=== PATIENT | female | born 1965 | race Caucasian/White ===

== ENCOUNTER → 2017-05-03 | Outpatient (CLI) | payer BC | END | disposition home or self-care (01) | LOC: LABWHC1 09:51 | PROVIDERS: ATTEND Internal Medicine Endocrinology, Diabetes & Metabolism | DX: E03.9 Hypothyroidism, unspecified (principal); E06.3 Autoimmune thyroiditis; E22.1 Hyperprolactinemia; D35.2 Benign neoplasm of pituitary gland | CPT/HCPCS: 36415; 84146 ==

== ENCOUNTER → 2019-04-07 | Outpatient (CLI) | payer BC ==
--- NOTE | 2019-04-07 14:00 | XR ---
EXAMINATION TYPE: XR chest 2V DATE OF EXAM: 04/07/2019 COMPARISON: NONE TECHNIQUE: PA and lateral views submitted. HISTORY: Cough FINDINGS: The lungs are clear and there is no pneumothorax, pleural effusion, or focal pneumonia. Hypertrophi c change of the spine. IMPRESSION: 1. No acute process.
== END ==
LOC: RADXRMAIN 13:28
PROVIDERS: ATTEND Otolaryngology
DX: R06.02 Shortness of breath (principal); R05 Cough
CPT/HCPCS: 71046

== ENCOUNTER → 2019-10-19 | Outpatient (CLI) | payer BC | END | disposition home or self-care (01) | LOC: LABWHC1 13:02 | PROVIDERS: ATTEND Otolaryngology | DX: T78.40XA Allergy, unspecified, initial encounter (principal) | CPT/HCPCS: 36415 ==

== ENCOUNTER → 2019-12-29 | Outpatient (CLI) | payer BC ==
[2019-12-29 12:29] LABS: Basophils % (A) 1 %; Eosinophils # (A) 0.2 k/uL (0-0.7); Eosinophils % (A) 4 %; HCT 40.1 % (34.0-46.0); HGB 13.3 gm/dL (11.4-16.0); Lymphocytes # (A) 1.7 k/uL (1.0-4.8); Lymphocytes % (A) 31 %; MCH 30.1 pg (25.0-35.0); MCHC 33.1 g/dL (31.0-37.0); MCV 90.8 fL (80.0-100.0); Mean Platelet Volume 7.1; Monocytes # (A) 0.3 k/uL (0-1.0); Monocytes % (A) 5 %; Neutrophils # (A) 3.2 k/uL (1.3-7.7); Neutrophils % (A) 58 %; Platelet Count 325 k/uL (150-450); RBC 4.41 m/uL (3.80-5.40); RDW 13.2 % (11.5-15.5); WBC 5.5 k/uL (3.8-10.6)
[2019-12-29 18:30] LABS: Hemoglobin A1C 5.7 % (4.0-6.0)
== END | disposition home or self-care (01) ==
LOC: LABWHC1 11:35
PROVIDERS: ATTEND Otolaryngology
DX: R73.9 Hyperglycemia, unspecified (principal); R53.83 Other fatigue
CPT/HCPCS: 36415; 83036; 85025; 86141

== ENCOUNTER → 2020-05-11 | Outpatient (CLI) | payer BC ==
--- NOTE | 2020-05-11 08:34 | XR ---
EXAMINATION TYPE: XR foot complete RT DATE OF EXAM: 05/11/2020 COMPARISON: NONE HISTORY: Pain TECHNIQUE: Three views are submitted. FINDINGS: The osseous structures are intact. There is no acute fracture or dislocation. Plantar calcaneal spur noted. Well-corticated bony densities adjacent to the cuboid bone may represent accessory ossicl es severe arthropathy of the first MTP joint. IMPRESSION: 1. No acute fracture or dislocation. If symptoms persist, follow-up exam in 7 to 10 days could be ob tained.
--- NOTE | 2020-05-11 08:34 | XR ---
EXAMINATION TYPE: XR ankle complete RT DATE OF EXAM: 05/11/2020 COMPARISON: NONE HISTORY: Pain and swelling FINDINGS: Three views of the ankle demonstrate the ankle mortise to be intact and symmetric. There is a plantar calcaneal spur. There is a slight cortical defect involving the medial malleolus. IMPRESSION: 1. Slight cortical defect involving the medial malleolus compatible with an age-indeterminate tiny av ulsion fracture. Correlate with point tenderness.
== END | disposition home or self-care (01) ==
LOC: RADXRMAIN 08:05
PROVIDERS: ATTEND Otolaryngology
DX: M89.8X7 Other specified disorders of bone, ankle and foot (principal)

== ENCOUNTER 2020-09-16 04:00 | Emergency (ER) | payer BC ==
[2020-09-16 04:13] VITALS: RESP 16
--- NOTE | 2020-09-16 04:23 | ED ---
Chest Pain HPI - General Chief Complaint: Chest Pain Stated Complaint: Chest pain, weakness, vomiting Time Seen by Provider: 09/16/20 04:07 Source: patient Mode of arrival: wheelchair Limitations: no limitations - History of Present Illness Initial Comments: this patient is a 55-year-old woman presenting to be evaluated for some symptoms that woke her from sleep tonight. She states that she had been feeling well yesterday. She had in fact gone out celebrating and had 4 drinks and some pizza. She awoke this morning with severe substernal heartburn feeling. She also noticed that her heart was racing and she felt like she couldn't catch her breath. Patient had an episode of vomiting. The symptoms then began to improve and she states that they have resolved by now. MD Complaint: chest pain -: minutes(s) Onset: awoke with symptoms Pain Location: substernal Pain Radiation: none Quality: other (burning) Consistency: now resolved Improves With: other (spontaneously) Worsens With: nothing Anginal Symptoms: vomiting, dyspnea Treatments Prior to Arrival: none - Related Data Home Medications Medication Instructions Recorded Confirmed Atorvastatin [Lipitor] 20 mg PO HS 06/01/15 06/01/15 Levothyroxine Sodium [Synthroid] 75 mcg PO DAILY 06/01/15 06/01/15 Dostinex 5 mg PO SUWE 06/02/15 06/02/15 Ipratropium [place] 0.06%Nasal 2 spray NASAL DAILY 06/02/15 06/02/15 [Atrovent Nasal] Allergies Allergy/AdvReac Type Severity Reaction Status Date / Time levofloxacin [From Levaquin] Allergy Unknown Verified 09/16/20 04:14 Review of Systems ROS Statement: Those systems with pertinent positive or pertinent negative responses have been documented in the HPI. ROS Other: All systems not noted in ROS Statement are negative. Constitutional: Denies: fever, chills Respiratory: Reports: dyspnea. Denies: cough Cardiovascular: Reports: chest pain, palpitations. Denies: orthopnea, edema, syncope Gastrointestinal: Reports: nausea, vomiting. Denies: abdominal pain, diarrhea, constipation Genitourinary: Denies: dysuria, hematuria Musculoskeletal: Denies: back pain Skin: Denies: rash Neurological: Denies: headache, weakness, numbness EKG Findings - EKG Results: EKG: interpreted by ERMD, WNL, sinus rhythm (rate 79), normal axis, normal QRS, normal ST/T, no acute changes Past Medical History Additional Past Medical History / Comment(s): pituitary tumor History of Any Multi-Drug Resistant Organisms: None Reported Past Surgical History: Appendectomy Smoking Status: Never smoker Past Alcohol Use History: Occasional Past Drug Use History: None Reported General Exam Limitations: no limitations General appearance: alert, in no apparent distress Head exam: Present: atraumatic, normocephalic Eye exam: Present: normal appearance. Absent: scleral icterus, conjunctival injection ENT exam: Present: normal oropharynx Neck exam: Present: normal inspection Respiratory exam: Present: normal lung sounds bilaterally. Absent: respiratory distress, wheezes, rales, rhonchi, stridor Cardiovascular Exam: Present: regular rate, normal rhythm, normal heart sounds. Absent: systolic murmur, diastolic murmur, rubs, gallop GI/Abdominal exam: Present: soft. Absent: distended, tenderness, guarding, rebound, rigid, mass Extremities exam: Present: normal inspection, normal capillary refill. Absent: pedal edema, calf tenderness Back exam: Present: normal inspection. Absent: CVA tenderness (R), CVA tenderness (L) Neurological exam: Present: alert Skin exam: Present: warm, dry, intact, normal color. Absent: rash Course Vital Signs 09/16/20 09/16/20 04:05 04:14 Temperature 98.9 F Pulse Rate 81 Pulse Rate [ 83 [employer] ] Respiratory 16 Rate Blood Pressure 149/99 O2 Sat by Pulse 99 Oximetry Disposition Clinical Impression: Chest pain Disposition: HOME SELF-CARE Condition: Good Instructions (If sedation given, give patient instructions): Chest Pain (ED) Is patient prescribed a controlled substance at d/c from ED?: No Referrals: Salomon Arvizu DO [Primary Care Provider] - 1-2 days
[2020-09-16 04:47] LABS: Basophils # (A) 0.1 k/uL (0-0.2); Basophils % (A) 1 %; Eosinophils # (A) 0.5 k/uL (0-0.7); Eosinophils % (A) 4 %; HCT 40.1 % (34.0-46.0); HGB 13.4 gm/dL (11.4-16.0); Lymphocytes # (A) 2.8 k/uL (1.0-4.8); Lymphocytes % (A) 24 %; MCH 30.2 pg (25.0-35.0); MCHC 33.3 g/dL (31.0-37.0); MCV 90.9 fL (80.0-100.0); Mean Platelet Volume 6.7; Monocytes # (A) 0.7 k/uL (0-1.0); Monocytes % (A) 6 %; Neutrophils # (A) 7.5 k/uL (1.3-7.7); Neutrophils % (A) 64 %; Platelet Count 349 k/uL (150-450); RBC 4.42 m/uL (3.80-5.40); RDW 12.9 % (11.5-15.5); WBC 11.7 k/uL (3.8-10.6)
--- NOTE | 2020-09-16 04:54 | XR ---
EXAM: XR Chest, 2 Views CLINICAL HISTORY: Chest Pain TECHNIQUE: Frontal and lateral views of the chest. COMPARISON: 04/07/2019. FINDINGS: Lungs: Left lower lobe atelectasis and/or consolidation, best seen on the lateral view. Pleural space: Unremarkable. No pneumothorax. Heart: Unremarkable. No cardiomegaly. Mediastinum: Unremarkable. Bones/joints: Unremarkable. IMPRESSION: Left lower lobe atelectasis and/or consolidation, best seen on the lateral view. CT of the chest may be obtained for further evaluation, if clinically indicated.
[2020-09-16 04:57] LABS: Albumin 4.6 g/dL (3.5-5.0); Calcium 9.5 mg/dL (8.4-10.2); Magnesium 1.7 mg/dL (1.6-2.3); Potassium 4.5 mmol/L (3.5-5.1); Total Bilirubin 0.5 mg/dL (0.2-1.3); Total Protein 7.2 g/dL (6.3-8.2)
[2020-09-16 05:01] LABS: INR 0.9 (<1.2); Partial Thromboplastin Time 22.3 sec (22.0-30.0); Prothrombin Time 9.8 sec (9.0-12.0)
[2020-09-16 06:00] VITALS: BP 131/77; PULSE 70; TEMP 98
== END 2020-09-16 06:05 | disposition home or self-care (01) ==
LOC: EC 04:00
DX: R07.9 Chest pain, unspecified (principal); R12 Heartburn; R11.10 Vomiting, unspecified; Z88.1 Allergy status to other antibiotic agents; Z86.39 Personal history of other endocrine, nutritional and metabolic disease
CPT/HCPCS: 36415; 71046; 80053; 82150; 83690; 83735; 84484; 85025; 85610; 85730; 93005; 99285

== ENCOUNTER → 2020-09-21 | Outpatient (CLI) | payer BC ==
[2020-09-21 13:07] LABS: African American GFR (CKD) >90 (>60 ml/min/1.73 sqM); Blood Urea Nitrogen 12 mg/dL (7-17); Non-African American GFR(CKD) >90 (>60 ml/min/1.73 sqM)
--- NOTE | 2020-09-21 16:12 | CT ---
EXAMINATION TYPE: CT chest w con DATE OF EXAM: 09/21/2020 COMPARISON: None HISTORY: shortness of breath and difficulty laying flat CT DLP: 377.2 mGycm, Automated exposure control for dose reduction was used. CONTRAST: Performed injected with 100 mL of Isovue 300. TECHNIQUE: Axial images were obtained at 5 mm thick sections. Reconstructed images are reviewed on [employer] computer in the coronal plane. FINDINGS: Portion of the thyroid visualized is normal. No suspicious lung nodules or focal infiltrates are present. No enlarged mediastinal or hilar adenopathy is evident. The ascending aorta diameter at the level o f the main pulmonary artery is 3.4 cm. The main pulmonary artery diameter at the bifurcation is 2.[address] sections are obtained through the upper abdomen. Abdomen is essentially unremarkable. IMPRESSIONS: 1. No acute pulmonary process.
== END | disposition home or self-care (01) ==
LOC: RADCTMAIN 12:10
PROVIDERS: ATTEND Internal Medicine Critical Care Medicine
DX: J18.9 Pneumonia, unspecified organism (principal); Z88.1 Allergy status to other antibiotic agents
CPT/HCPCS: 82565; 84520; 71260; 36415; Q9967

== ENCOUNTER → 2021-10-04 | Outpatient (CLI) | payer BC ==
--- NOTE | 2021-10-05 09:59 | XR ---
EXAMINATION TYPE: XR chest w obliques DATE OF EXAM: 10/04/2021 COMPARISON: 09/16/2020 HISTORY: Cough TECHNIQUE: Frontal and lateral views of the chest are obtained. FINDINGS: Heart is normal. Subsegmental changes at the lung bases. No pneumothorax or interstitial e angela. Pleural thickening or tiny pleural effusions. IMPRESSION: Basilar atelectasis or early infiltrate.
== END | disposition home or self-care (01) ==
LOC: RADXRMAIN 16:01
PROVIDERS: ATTEND Otolaryngology
DX: J98.4 Other disorders of lung (principal)
CPT/HCPCS: 71047

== ENCOUNTER 2021-10-05 15:45 | Emergency (ER) | payer BC ==
--- NOTE | 2021-10-05 19:18 | ED ---
General Adult HPI - General Chief complaint: Upper Respiratory Infection Stated complaint: Covid+, wants BAM Time Seen by Provider: 10/05/21 18:47 Source: patient, RN notes reviewed Mode of arrival: ambulatory Limitations: no limitations - History of Present Illness Initial comments: Patient is a pleasant 56-year-old female presents emergency Department with concerns for COVID-19 infection. Onset of symptoms was 5 days ago. Patient was exposed is 2 days prior to that. Patient does have cough and chest congestion. Patient has had chills and significant fatigue. No nausea vomiting or diarrhea. Patient is tolerating oral intake. No loss of taste or smell. Patient did have positive test with Dr. ubaldo sawant. - Related Data Home Medications Medication Instructions Recorded Confirmed Atorvastatin [Lipitor] 20 mg PO HS 06/01/15 06/01/15 Levothyroxine Sodium [Synthroid] 75 mcg PO DAILY 06/01/15 06/01/15 Dostinex 5 mg PO SUWE 06/02/15 06/02/15 Ipratropium [place] 0.06%Nasal 2 spray NASAL DAILY 06/02/15 06/02/15 [Atrovent Nasal] Allergies Allergy/AdvReac Type Severity Reaction Status Date / Time levofloxacin [From Levaquin] Allergy Unknown Verified 10/05/21 16:17 Review of Systems ROS Statement: Those systems with pertinent positive or pertinent negative responses have been documented in the HPI. ROS Other: All systems not noted in ROS Statement are negative. Eyes: Denies: eye pain ENT: Reports: congestion Respiratory: Reports: cough Cardiovascular: Denies: chest pain Endocrine: Reports: fatigue Gastrointestinal: Denies: abdominal pain Genitourinary: Denies: dysuria Musculoskeletal: Denies: back pain Skin: Denies: rash Neurological: Denies: weakness Past Medical History Past Medical History: Hypertension Additional Past Medical History / Comment(s): pituitary tumor, bronchitis, History of Any Multi-Drug Resistant Organisms: None Reported Past Surgical History: Appendectomy Smoking Status: Never smoker Past Alcohol Use History: Occasional Past Drug Use History: None Reported General Exam Limitations: no limitations General appearance: alert, in no apparent distress Head exam: Present: normocephalic Eye exam: Present: normal appearance Neck exam: Present: normal inspection Respiratory exam: Present: normal lung sounds bilaterally Cardiovascular Exam: Present: regular rate, normal rhythm Extremities exam: Present: normal inspection. Absent: calf tenderness Neurological exam: Present: alert Psychiatric exam: Present: normal affect, normal mood Skin exam: Present: normal color Course Vital Signs 10/05/21 16:14 Temperature 98.5 F Pulse Rate 69 Respiratory 22 Rate Blood Pressure 183/111 O2 Sat by Pulse 97 Oximetry Medical Decision Making - Medical Decision Making Patient is a candidate for monoclonal antibodies and will receive this prior to discharge. Disposition Clinical Impression: COVID-19 Disposition: HOME SELF-CARE Condition: Stable Instructions (If sedation given, give patient instructions): Coronavirus Disease 2019 (COVID-19) Additional Instructions: Please do follow-up to primary care physician in the next day or 2 for recheck. [id number] vitamin C, vitamin D, and zinc. Melatonin also be of benefit. [id number] Tylenol as needed. Return for difficulty breathing, not tolerating fluids, worsening symptoms or other concerns. Is patient prescribed a controlled substance at d/c from ED?: No Referrals: Salomon Arvizu DO [Primary Care Provider] - 1-2 days Time of Disposition: 19:18
[2021-10-05] MEDS ORDERED: SODIUM CHLORIDE 0.9% 50 ML IVPB ONE (19:45)
[2021-10-05] MEDS ORDERED: SOTROVIMAB (EUA) 500 MG in SODIUM CHLORIDE 0.9% 100 ML IVPB ONE (19:45)
[2021-10-05 20:47] VITALS: TEMP 98.3
[2021-10-05 22:23] VITALS: BP 123/81; PULSE 59; RESP 16
== END 2021-10-05 22:22 | disposition home or self-care (01) ==
LOC: EC 15:45
DX: U07.1 COVID-19 (principal); I10 Essential (primary) hypertension; Z88.1 Allergy status to other antibiotic agents; Z90.49 Acquired absence of other specified parts of digestive tract
CPT/HCPCS: 99283; Q0247

== ENCOUNTER → 2021-11-17 | Outpatient (CLI) | payer BC ==
--- NOTE | 2021-11-17 16:16 | CT ---
EXAMINATION TYPE: High-resolution CT chest DATE OF EXAM: 11/17/2021 COMPARISON: 09/21/2020 HISTORY: 56-year-old female SOB post covid TECHNIQUE: High-resolution axial scanning of the chest without contrast utilizing 1 mm slice thicknes s and 1 cm gap per HRCT protocol. Both prone and supine imaging was performed. CT DLP: 854.5 mGycm Automated exposure control for dose reduction was used. FINDINGS: Heart normal size without pericardial effusion. Mildly ectatic ascending aorta 3.6 cm. There is conve ntional arch vessel branching anatomy. Allowing for HRCT technique. No thoracic lymphadenopathy is identified. Lungs show mild diffuse bronchial wall thickening. There is some strandy atelectasis in the right mid dle lobe versus scarring. The finding persists on the prone imaging. No consolidation or pleural effu letty. No honeycombing, thickening of the bronchovascular bundles, groundglass opacities, bronchiectas is, or cystic change. No tree-in-bud opacities or perilymphatic nodularity. Small hiatal hernia. Visualized upper abdomen otherwise shows no gross abnormal body. Bones: No osseous destructive process. IMPRESSION: 1. MILD BRONCHIAL WALL THICKENING MAY BE SEEN WITH BRONCHITIS OR CHRONIC ASTHMA. 2. SOME LINEAR SCARRING IN THE RIGHT MIDDLE LOBE. NO SPECIFIC FINDINGS OF INTERSTITIAL LUNG DISEASE. 3. SMALL HIATAL HERNIA.
== END | disposition home or self-care (01) ==
LOC: RADCTMAIN 13:39
PROVIDERS: ATTEND Internal Medicine Critical Care Medicine
DX: J98.09 Other diseases of bronchus, not elsewhere classified (principal); K44.9 Diaphragmatic hernia without obstruction or gangrene; J98.4 Other disorders of lung
CPT/HCPCS: 71250

== ENCOUNTER → 2022-11-12 | Outpatient (CLI) | payer BC ==
--- NOTE | 2022-11-12 12:11 | BD ---
EXAMINATION TYPE: Axial Bone Density DATE OF EXAM: 11/12/2022 COMPARISON: DEXA bone scan 2012 CLINICAL HISTORY: 57 years year old Female. ICD-10 CODE: Z78.0 POST MENOPAUSAL W/O HRT Height: 5 FT 4 IN Weight: 205 FRAX RISK QUESTIONS: Alcohol (3 or more units per day): NO Family History (Parent hip fracture): NO Glucocorticoids (More than 3mos): YES (Ex: prednisone, prednisolone, methylprednisolone, dexamethasone, and hydrocortisone). History of Fracture in Adulthood: YES Secondary Osteoporosis: 1. Type 1 Diabetes: NO 2. Hyperthyroidism: NO 3. Menopause before 45: NO 4. Malnutrition: NO 5. Chronic liver disease: NO Rheumatoid Arthritis: YES Current Tobacco Use: NO RISK FACTORS HISTORY OF: Surgery to Spine/Hip(right/left)/Wrist (right/left): NO Family History of Osteoporosis: NO Active: YES Diet low in dairy products/other sources of calcium: NO Postmenopausal woman: YES Take estrogen and/or progesterone medications: NO Lost more than 2 inches in height since high school: NO Frequent falls: NO Poor Health: GOOD Hyperparathyroidism: NO Adrenal Insufficiency: NO MEDICATIONS: Thyroid Medications: YES Which medication: SYNTHROID How Long: OVER 20 YEARS Additional Medications: HORMONE SABA, SYNTHROID, ALLERGY MEDS, CHOLESTEROL MEDS, BLOOD PRESSURE ME DS Additional History: BREAST CANCER 2020 RADIATION EXAM MEASUREMENTS: Bone mineral densitometry was performed using the [employer]. Bone mineral density as measured about the Lumbar spine is: ----- L1-L4(G/cm2): 1.169 T Score Values are as follows: ----- L1: -0.9 ----- L2: 0.2 ----- L3: -0.1 ----- L4: 0.1 ----- L1-L4: -0.1 PREV DONE ELSEWHERE Bone mineral density about the R hip (g/cm2): 1.100 Bone mineral density about the L hip (g/cm2): 1.165 T Score values are as follows: -----R Neck: 0.4 -----L Neck: 0.9 -----R Total: 1.2 -----L Total: 1.6 PREV DONE ELSEWHERE FRAX%s: The graph provided illustrates a 8.5 % chance for a major osteoporotic fx and a 0.1 % chance for the hips probability for fx in 10 years time. IMPRESSION: Normal (Values between +1 and -1 indicate normal bone mass). Consider repeating this study in 5 year s or sooner if there is some new clinical indication. NOTE: T-SCORE=SD OF THE YOUNG ADULT MEAN.
== END | disposition home or self-care (01) ==
LOC: RADBDWWP 10:43
PROVIDERS: ATTEND Internal Medicine Hematology & Oncology
DX: Z78.0 Asymptomatic menopausal state (principal); Z85.3 Personal history of malignant neoplasm of breast
CPT/HCPCS: 77080

== ENCOUNTER → 2023-06-21 | Outpatient (CLI) | payer BC ==
--- NOTE | 2023-06-23 20:51 | CT ---
EXAMINATION TYPE: CT soft tissue neck w con DATE OF EXAM: 06/21/2023 COMPARISON: None HISTORY: sore throat, hx of thyroid issues controlled by synthorid, pt states palpable lump CT DLP: 612.20 mGycm CONTRAST: Patient injected with 100 mL of Isovue 300. TECHNIQUE: Axial images at 3 mm thick sections. Reconstructed images in the coronal plane and sagitt al plane are reviewed. FINDINGS: Limited CT sections are obtained the lung apices. The lung apices appear clear. CT neck: The torus tubarius and fossa of Rosenmuller are normal. [employer] spaces are normal. Para nasal sinuses and mastoid air cells are clear. Parotid glands appear normal and symmetrical. Submandibular glands, are normal. Parapharyngeal spac es are normal. No suspicious adenopathy is evident. There are a few scattered small lymph nodes pres ent bilaterally. The hypopharynx appears within normal limits. Vocal cord level appear symmetrical. Thyroid appears atrophic. No masses in or about the thyroid are identified. Some minimal asymmetry of the left sternocleidomastoid near its insertion on the clavicular region may be present. No other un derlying masses evident. Osseous structures are normal. Degenerative disc changes present C5-6 C6-7. Small anterior vertebral body spurs are present at these levels. IMPRESSIONS: 1. No suspicious mass is identified. Mild asymmetry of the left sternocleidomastoid muscle may be pre sent. 2. Degenerative disc changes C5-6 C6-7
== END | disposition home or self-care (01) ==
LOC: RADCTMAIN 09:54
PROVIDERS: ATTEND Otolaryngology
DX: M50.322 Other cervical disc degeneration at C5-C6 level (principal); R07.0 Pain in throat
CPT/HCPCS: 70491; Q9967

== ENCOUNTER → 2023-08-08 | Outpatient (CLI) | payer BC ==
--- NOTE | 2023-08-08 14:15 | FL ---
EXAMINATION TYPE: FL barium swallow DATE OF EXAM: 08/08/2023 CLINICAL INDICATION: 58-year-old female R13.10, dysphagia, unusual sensation in throat. COMPARISON: None Total Fluoroscopy Time: 2 minutes 0 seconds. DAP: 381.89 mGycm2. 50 images obtained. FINDINGS: The swallowing mechanism is normal. There is mild to moderate anterior endplate spondylosis at C5-C6 and C6-C7 causing mild impressions onto the back wall of the cervical esophagus. There is no obstruct ion here. Hypopharyngeal anatomy is otherwise maintained. The thoracic portion has a normal course and caliber and normal motility. The mucosa is normal and no persistent filling defect is encountered. There is a small sliding hiatal hernia that variably distends depending on patient breathing and posi tioning. During Valsalva and turning maneuver, severe gastroesophageal reflux is seen to the thoracic inlet. IMPRESSION: 1. Anterior endplate spondylosis at C5-C6 and C6-C7 causing mild impressions onto the back wall of th e cervical esophagus but without any obstruction. 2. Small sliding hiatal hernia with severe gastroesophageal reflux seen during Valsalva and turning m aneuver.
== END ==
LOC: RADUSWWP 08:57
PROVIDERS: ATTEND Otolaryngology
DX: K21.9 Gastro-esophageal reflux disease without esophagitis (principal); M47.812 Spondylosis without myelopathy or radiculopathy, cervical region; K44.9 Diaphragmatic hernia without obstruction or gangrene; R13.10 Dysphagia, unspecified
CPT/HCPCS: 74220

== ENCOUNTER → 2024-01-21 | Outpatient (CLI) | payer BC ==
[2024-01-21 11:40] LABS: Chol/HDL Ratio 5.46 Ratio; LDL Cholesterol,Calculated 211.7 mg/dL (0.0-131.0)
== END | disposition home or self-care (01) ==
LOC: LABWHC1 08:05
PROVIDERS: ATTEND Internal Medicine Endocrinology, Diabetes & Metabolism
DX: D35.2 Benign neoplasm of pituitary gland (principal); E03.9 Hypothyroidism, unspecified; E06.3 Autoimmune thyroiditis; E22.1 Hyperprolactinemia
CPT/HCPCS: 36415; 80061; 84146; 84443

== ENCOUNTER → 2025-01-29 | Outpatient (CLI) | payer BC ==
--- NOTE | 2025-01-29 13:39 | BD ---
EXAMINATION TYPE: Axial Bone Density DATE OF EXAM: 01/29/2025 CLINICAL HISTORY: 59 years old Female. ICD-10 CODE: M81.0 OSTEOPOROSIS , Additional History: Height: 64 Weight: 205 FRAX RISK QUESTIONS: Family History (Parent hip fracture): no Glucocorticoids (More than 3mos): yes (Ex: prednisone, prednisolone, methylprednisolone, dexamethasone, and hydrocortisone). History of Fracture in Adulthood: yes Secondary Osteoporosis: no Rheumatoid Arthritis: yes RISK FACTORS HISTORY OF: Surgery to Spine/Hip(right/left)/Wrist (right/left): no MEDICATIONS: Thyroid Medications: yes Which medication: Synthroid How Lon+ years Osteoporosis Medications: no EXAM MEASUREMENTS: Bone mineral densitometry was performed using the [employer]. Bone mineral density as measured about the Lumbar spine is: ----- L1-L4(G/cm2): 1.093 T Score Values are as follows: ----- L1: -1.3 ----- L2: -0.6 ----- L3: -0.3 ----- L4: -0.9 ----- L1-L4: 0.7 Z Score Values are as follows: ----- L1: -0.9 ----- L2: -0.2 ----- L3: 0.1 ----- L4: -0.5 ----- L1-L4: -0.3 Bone mineral density has: Decreased -6.5% since study of: 11/12/2022 Bone mineral density about the R hip (g/cm2): 1.106 Bone mineral density about the L hip (g/cm2): 1.181 T Score values are as follows: -----R Neck: 0.3 -----L Neck: 1.6 -----R Total: 0.8 -----L Total: 1.4 Z Score values are as follows: -----R Neck: 1.1 -----L Neck: 2.3 -----R Total: 1.1 -----L Total: 1.7 Bone mineral density has: Decreased -3.5% since study of: 11/12/2022 FRAX%s: The graph provided illustrates a 14.8% chance for a major osteoporotic fx and a 0.3% chance f or the hips probability for fx in 10 years time. IMPRESSION: Normal (Values between +1 and -1 indicate normal bone mass). Consider repeating this study in 5 year s or sooner if there is some new clinical indication. NOTE: T-SCORE=SD OF THE YOUNG ADULT MEAN. [facility], , 01/29/2025 1:36 PM
== END | disposition home or self-care (01) ==
LOC: RADBDWWP 10:01
PROVIDERS: ATTEND Internal Medicine Hematology & Oncology
DX: M81.0 Age-related osteoporosis without current pathological fracture (principal); C50.412 Malignant neoplasm of upper-outer quadrant of left female breast; E03.9 Hypothyroidism, unspecified; I10 Essential (primary) hypertension; Z71.3 Dietary counseling and surveillance
CPT/HCPCS: 77080